=== PATIENT | female | born 1955 | race Caucasian/White ===

== ENCOUNTER 2017-04-17 07:30 | Inpatient (IN) | payer MEDICAID ==
[~2017-04-17 07:30] MED LIST: ACETAMINOPHEN 1,000 MG/100 ML BTL IV ONE; CEFAZOLIN 2 Gram 2 GM/50 ML BAG IVPB ONE; FAMOTIDINE 20MG TABLET PO ONE; MECLIZINE 25 MG TABLET PO ONE; METOCLOPRAMIDE 10 MG TABLET PO ONE
[2017-05-08] MEDS ORDERED: HYDROMORPHONE HCL 2 MG/ML VIAL IV PRN (09:19)
[2017-05-08] MEDS ORDERED: OXYCODONE HCL 5 MG TABLET PO PRN ×2 (09:20)
[2017-05-08] MEDS ORDERED: HYDROCODONE/APAP 5/325MG TABLET PO PRN ×2 (09:20)
[2017-05-08] MEDS ORDERED: OXYCODONE HCL/APAP 5MG/325MG TABLET PO PRN ×2 (09:20)
[2017-05-08] MEDS ORDERED: PATIENT OWN MED: PROAIR HFA INH PRN (09:24)
[2017-05-08] MEDS ORDERED: LORATADINE 10 MG TABLET PO PRN (09:24)
[2017-05-08] MEDS ORDERED: IBUPROFEN 600 MG TABLET PO PRN (09:25)
[2017-05-08] MEDS ORDERED: TRAMADOL HCL 50 MG TABLET PO PRN (09:30)
[2017-05-08] MEDS ORDERED: AL HYDROX/MAG HYDROX 30ML UD PO PRN (09:30)
[2017-05-08] MEDS ORDERED: MAGNESIUM HYDROXIDE 30 ML UDC PO PRN (09:30)
[2017-05-08] MEDS ORDERED: SENNOSIDES/DOCUSATE SODIUM UD CAPSULE PO PRN (09:30)
[2017-05-08] MEDS ORDERED: DIPHENHYDRAMINE HCL 25 MG CAPSULE PO PRN (09:30)
[2017-05-08] MEDS ORDERED: ONDANSETRON HCL IV 4 MG/2 ML VIAL IVP PRN (09:30)
[2017-05-08] MEDS ORDERED: METOCLOPRAMIDE HCL 10 MG/2 ML VIAL IVP PRN (09:30)
[2017-05-08] MEDS ORDERED: RINGERS SOLUTION,LACTATED 1,000 ML IV PRN (10:31)
[2017-05-08] MEDS ORDERED: TRANEXAMIC ACID 1,000 MG in 0.9 % SODIUM CHLORIDE 100ML 100 ML IVPB ONE (11:00)
[2017-05-08] MEDS ORDERED: BUPIVACAINE 0.25% W/EPI MPF 30ML VIAL IVP ONE (12:28)
[2017-05-08] MEDS ORDERED: BUPIVACAINE LIPOSOME 266MG/20ML VIAL IV ONE (12:28)
[2017-05-08] MEDS ORDERED: TRANEXAMIC ACID 1,000 MG/10 ML ML IV ONE (12:28)
--- NOTE | 2017-05-08 13:20 | Operative Note ---
DATE OF SURGERY: 05/08/2017 Surgeon: González Julian DO Referring physician: Nery De Leon NP PREOPERATIVE DIAGNOSIS: Primary osteoarthritis of the right knee. POSTOPERATIVE DIAGNOSIS: Primary osteoarthritis of the right knee. OPERATION: Right total knee arthroplasty. Anesthesia: Spinal. PROCEDURE: This 61-year-old female was taken to the operating room and placed in the supine position on the operating room table. Spinal anesthesia was administered and the right lower extremity was elevated and prepped with Hibiclens and draped in the usual sterile fashion. It was exsanguinated and the tourniquet inflated to 300 mmHg. All scrubbed personnel wore personal isolation suits. An anterior longitudinal midline incision was made, followed by a medial parapatellar arthrotomy incision. An intracondylar drill hole was made for the intramedullary alignment cody and the distal femoral cutting block was affixed to make a 5 degree valgus 9 mm cut on the distal femur. The sizing jig was affixed and size 60 was seen to be the appropriate size in the medial lateral direction, but too small in the anterior posterior dimension, therefore we removed the pin sites 2 mm anteriorly and then pinned the size 60 4-in-1 cutting block in 3 degrees of external rotation. The appropriate cuts were made and the wafer of bone was removed. We then directed our attention to the proximal tibia. An extramedullary alignment guide was used to cut the proximal tibia, referencing a 10 mm cut off the lateral tibial plateau. After the cutting block had been placed in the appropriate position, a 3 degree posterior slope cut was made on the proximal tibia and the wafer of bone was removed. The remnants of the menisci and osteophytes were removed from the posterior aspect of the joint. The tibia was sized to a size 67, the stem punch was used. The wound copiously irrigated to remove debris from the joint. The patella was measured, cut, and restored to anatomic height with a 31 x 6.2 mm trial. The remainder of the trial components were inserted and an 11 mm bearing was seen to be the appropriate size, which gave us excellent stability in varus valgus and throughout full range of motion. All trial components were removed and the wound copiously irrigated with pulse lavage lactated Ringer's solution. Exparel was injected into the posterior medial and lateral corners of the joint and all bony surfaces were dried, all components were cemented and excess cement removed after the insertion of each component. Initially, the tibial base plate was cemented, followed by the tibial bearing, femoral component, and finally the patella. Once the cement had hardened, the remainder of the Exparel was injected into the proximal tibia and distal femur into the joint capsule and the periosteum of each. The drain was placed through a separate stab incision and the arthrotomy incision was closed with a 2 Vicryl. Additional sutures of 0 Ethibond were used for additional support. The wound again irrigated and the subcutaneous tissue closed with 0 Vicryl and the skin was stapled. A Polar Care was applied and the patient taken to the recovery room in satisfactory condition. GROSS PATHOLOGY: This patient had severe osteoarthritis, worst at the patellofemoral joint, but being full-thickness articular cartilage loss there. We also saw a full-thickness articular cartilage loss in the center of the weightbearing surface of the medial femoral condyle, in an area of about 2.5 cm. There was also full-thickness articular cartilage defect on the lateral tibial plateau with the lateral femoral condyle demonstrating grade 3 changes. The final components inserted were: A [employer] Vanguard size 60 cruciate retaining femoral component, a size 67 tibial base plate, an 11mm anterior stabilized E1 bearing, and a 31 x 6.2 mm patella was used. DARIUS
[2017-05-08] MEDS ORDERED: PROPOFOL 10 MG/ML VIAL IV ONE (14:00)
[2017-05-08] MEDS ORDERED: DIPHENHYDRAMINE HCL IV 50 MG/ML VIAL IVP ONE (14:00)
[2017-05-08] MEDS ORDERED: ONDANSETRON HCL IV 4 MG/2 ML VIAL IVP ONE ×2 (14:00→14:30)
[2017-05-08] MEDS ORDERED: EPHEDRINE SULFATE 50 MG/ML ML IV ONE (14:00)
[2017-05-08] MEDS ORDERED: HYDROMORPHONE HCL 2 MG/ML VIAL IV ONE (14:00)
[2017-05-08] MEDS ORDERED: MIDAZOLAM HCL 2MG/2ML VIAL IV ONE (14:00)
[2017-05-08] MEDS ORDERED: FENTANYL PF 100MCG/2ML VIAL IV ONE (14:00)
[2017-05-08] MEDS ORDERED: LIDOCAINE 2% MDV (20MG/ML) 20ML VIAL IV ONE (14:00)
[2017-05-08] MEDS: RINGERS SOLUTION,LACTATED 1,000 ML IV SCH (14:47)
[2017-05-08] MEDS: CEFAZOLIN 2 Gram 2 GM/50 ML BAG IVPB SCH ×2 (14:49→22:38)
--- NOTE | 2017-05-08 15:01 | Rehab Evaluation ---
Patient Information - Patient Information Diagnosis: L Knee OA Ordered Treatment: PT Evaluate and Treat Status: Initial Evaluation Surgery: Yes (L TKA) Date of Surgery: 05/08/17 History: Detail (Pt. reports degenerative changes at the right knee with history of fracture at the contralateral knee.) Past Med/David Hx Detail: Detail (Please see additional medication forms.) Past Medical/Surgical Hx: PAST MEDICAL/SURGICAL HISTORY Past Surgical History kidney sx PMH - Respiratory Hx Respiratory Disorders Yes Hx Asthma Yes: allergy induced Hx of SOB Yes: occass PMH - Cardiovascular Hx Cardiovascular Disorders Yes Hx Hypertension Yes Exercise Tolerance Good Comment: hyponatremia PMH - Neuro Hx Neurological Disorders Yes Hx Headaches Yes: occass Comment: sometimes off balance with low sodium PMH - GI Hx Gastrointestinal Disorders Yes Hx Gastroesophageal Reflux Yes PMH - Hx Genitourinary Disorders Yes Hx Age of Menopause 54 Comment: pt had right nephrectomy congenital abnormality PMH - Endocrine Hx Endocrine Disorders Yes Hx Diabetes Yes Hx of NIDDM Yes Comment: blood sugars 100 - 120 A1C 6.6 PMH - Musculoskeletal Hx Musculoskeletal Disorders Yes Hx Arthritis Yes PMH - Psych Hx Psychiatric Problems No PMH - Hematology/Oncology Hx Hematology/Oncology Yes Disorders Hx Bruising Yes Premorbid Status: Detail (Slowly progressive degenerative changes.) Social History: Detail (Pt. lives in a single story home with two steps leading in and no hand rail. Pt. has a single point cane, quad cane, front wheeled walker, and no modifications made to the bathroom. Pt. lives with her sister who can provide support. Pt. is to have outpatient PT services at [facility] in [place].) Precautions: [place], Fall - Time With Patient Total Time Spent With Patient (Min): 50 Treatment Procedures: Detail (Physical Therapy Evaluation Completed. Pt. was left supine with call light available, B IPC, CPM attached, Cryo RLE, and nursing was notified of pt.'s status.) Subjective Information - Subjective Information Per Patient (Pt. denied SOB, nausea, and reported 2/10 pain at start of tx. Pt. had feeling in her toes.) Objective Data - Pain Pain Present: Yes Pain Intensity: 2 - Mental Status Patient Orientation: Oriented x3 - Visual Perception Appears within normal limits for therapeutic activities - ROM Other (CPM set at 0-60. LLE WFL all planes, as well as BUE.) - Strength/Tone Not within normal limits (Break testing was not tolerated at the right knee. Pt. independently performed SLR with operative LE. Pt. performed single leg bridge with contralateral LE and trapeeze support in bed while maintaining the operative knee in an extended position for positioning of the CPM. Pt. transferred herself to head of bed while supine with the contralateral LE and BUE against the bed.) - Coordination Appears within normal limits for therapeutic activities - Bed Mobility Independent - Transfers Needs Assist (Pt. required VC for correct positioning of hands with sit to stand transfer, and she required tacticle cues to extend the right knee and avoid excessive flexion.) - Balance Balance Sitting: Fair Balance Standing: Poor - Sensation Intact - Gait Detail (Pt. initially advanced the walker with wheels off of floor, she was corrected to roll the walker and take small steps to avoid excessive trunk extension.) - ADL's/IADL's Detail (Pt. was I with bathroom tasks during void attempt.) - Special Tests No Therapy Assessment - Therapy Assessment Detail (Pt. exhibits LE ROM and strength deficits secondary to TKA, and had poor safety awareness with ambulation and positioning of her UE with walker during transfers. Pt. is an excellent candidate to be D/C from PT once goals completed for safe return to home environment.) Patient Education - Patient Education Teaching Topic: Disease Process, Equipment Use, Precautions Response: Return Demonstration, Verbalize Understanding Teaching Method: Discussion, Demonstration Teaching Recipient: Patient Barriers To Learning: None Problem List - Problem List Physical Therapy Problem List: Detail (1) LE Weakness 2) LE ROM Restriction 3) Poor Safety Awareness 4) Standing Balance Impairment) Goals - Goals Physical Therapy Goals: 1) Pt. will independently ambulate household distances with AD appropriately. 2) Pt. will independently ascend and descend two steps appropriately with AD. 3) Pt. will be independent with HEP and precautions. 4 ) Pt. will exhibit good understanding of walker and/or cane placement with transfer and ambulation. Prognosis - Prognosis Good (Pt. is expected to meet all goals set at inpatient evaluation.) Plan - Plan Physical Therapy Plan: Pt. is to be seen 1-2x per day for inpatient PT until goals met for safe D/C to home environment.
[2017-05-08] MEDS: FONDAPARINUX 2.5 MG/0.5 ML SYR SQ SCH (15:06)
[2017-05-08] MEDS: TRAMADOL HCL 50 MG TABLET PO PRN (21:34)
[2017-05-08] MEDS ORDERED: CLONIDINE HCL 0.1 MG TABLET PO SCH (22:00)
[2017-05-09] MEDS: TRAMADOL HCL 50 MG TABLET PO PRN ×2 (03:30→07:41)
[2017-05-09] MEDS: CEFAZOLIN 2 Gram 2 GM/50 ML BAG IVPB SCH (06:02)
[2017-05-09] MEDS: RINGERS SOLUTION,LACTATED 1,000 ML IV SCH (06:07)
[2017-05-09 06:54] LABS: HEMATOCRIT 36.3 % (35.0-47.0); HEMOGLOBIN 11.8 gm/dl (11.6-16.0); MEAN CELL VOLUME 83.3 fl (81-97); MEAN CORPUSCULAR HEMOGLOBIN 27.1 pg (27-33); MEAN CORPUSCULAR HGB CONC 32.5 g/dl (32-36); MEAN PLATELET VOLUME 11.2 fl (7.4-10.4); PLATELET COUNT 265 K/uL (130-400); RED BLOOD COUNT 4.36 M/uL (3.80-5.40); RED CELL DISTRIBUTION WIDTH 13.8 % (11.5-14.5); WHITE BLOOD COUNT W/O DIFF 11.3 K/uL (4.2-12.2)
[2017-05-09] MEDS ORDERED: METFORMIN 500 MG TABLET PO SCH (08:00)
[2017-05-09] MEDS ORDERED: ACETAMINOPHEN 325 MG TAB PO PRN (09:30)
[2017-05-09] MEDS ORDERED: AMLODIPINE 10 MG PO SCH (10:00)
[2017-05-09] MEDS ORDERED: SPIRONOLACTONE 50 MG PO SCH (10:00)
[2017-05-09] MEDS ORDERED: CHLORTHALIDONE 50 MG PO SCH (10:00)
--- NOTE | 2017-05-09 10:47 | Rehab Evaluation ---
Patient Information - Patient Information Diagnosis: L Knee OA Ordered Treatment: OT Evaluate and Treat Status: Initial Evaluation Surgery: Yes (L TKA) Date of Surgery: 05/08/17 History: Detail (Pt. reports degenerative changes at the right knee with history of fracture at the contralateral knee.) Past Med/David Hx Detail: Detail (Please see additional medication forms.) Past Medical/Surgical Hx: PAST MEDICAL/SURGICAL HISTORY Past Surgical History kidney sx PMH - Respiratory Hx Respiratory Disorders Yes Hx Asthma Yes: allergy induced Hx of SOB Yes: occass PMH - Cardiovascular Hx Cardiovascular Disorders Yes Hx Hypertension Yes Exercise Tolerance Good Comment: hyponatremia PMH - Neuro Hx Neurological Disorders Yes Hx Headaches Yes: occass Comment: sometimes off balance with low sodium PMH - GI Hx Gastrointestinal Disorders Yes Hx Gastroesophageal Reflux Yes PMH - Hx Genitourinary Disorders Yes Hx Age of Menopause 54 Comment: pt had right nephrectomy congenital abnormality PMH - Endocrine Hx Endocrine Disorders Yes Hx Diabetes Yes Hx of NIDDM Yes Comment: blood sugars 100 - 120 A1C 6.6 PMH - Musculoskeletal Hx Musculoskeletal Disorders Yes Hx Arthritis Yes PMH - Psych Hx Psychiatric Problems No PMH - Hematology/Oncology Hx Hematology/Oncology Yes Disorders Hx Bruising Yes Premorbid Status: Detail (Slowly progressive degenerative changes.) Social History: Detail (Pt. lives in a single story home with two steps leading in and no hand rail. Pt. has a single point cane, quad cane, front wheeled walker, and no modifications made to the bathroom. Pt. lives with her sister who can provide support. Pt. is to have outpatient PT services at [facility]. Pt also has a manager it training available.) Precautions: [place], Fall - Time With Patient Total Time Spent With Patient (Min): 20 Treatment Procedures: Detail (OT eval LOW) Subjective Information - Subjective Information Per Patient Objective Data - Pain Pain Present: Yes Pain Intensity: 4 (L knee) Pain Scale Used: Numeric (1 - 10) - Mental Status Patient Orientation: Oriented x3 - Visual Perception Appears within normal limits for therapeutic activities - ROM Within normal limits (BUE's) - Strength/Tone Within normal limits (BUE's) - Coordination Appears within normal limits for therapeutic activities - Bed Mobility Needs Assist (Pt required min A to help move LLE off bed.) - Transfers Independent (Sit <>stand t/f w/ 2WW. Independent toilet t/f) - Balance Balance Sitting: Good - Gait Detail (Pt ambulated from bed <> BR indpendently w/ 2WW) - ADL's/IADL's Detail (Pt ind w/ toileting and pant management as well as ambulating within the BR to complete hand washing independently. Pt was instructed on and demo'd understanding of LB drsg techniques. Pt independent with pants don. She states her sister will be helping with sock/shoe don. Pt plans to sponge bath for first several days but discussed wrapping techniques to prevent water from getting on incision site should she plan to shower.) Therapy Assessment - Therapy Assessment Detail (Pt safe and independent with toilet t/f, toilet hygiene and LB dressing. She is independent with ambulation of short distances using 2WW. No further OT needed at this time.) Patient Education - Patient Education Teaching Topic: Other (modified drsg techniques) Response: Return Demonstration Teaching Method: Discussion Teaching Recipient: Patient Problem List - Problem List Physical Therapy Problem List: Detail (1) LE Weakness 2) LE ROM Restriction 3) Poor Safety Awareness 4) Standing Balance Impairment) Goals - Goals Physical Therapy Goals: 1) Pt. will independently ambulate household distances with AD appropriately. 2) Pt. will independently ascend and descend two steps appropriately with AD. 3) Pt. will be independent with HEP and precautions. 4 ) Pt. will exhibit good understanding of walker and/or cane placement with transfer and ambulation. Prognosis - Prognosis Good Plan - Plan Physical Therapy Plan: Pt. is to be seen 1-2x per day for inpatient PT until goals met for safe D/C to home environment. Occupational Therapy Plan: No further inpatient OT needed at this time. Pt d/c' d from OT.
--- NOTE | 2017-05-09 12:17 | Physical Therapy Tx Note ---
Physical Therapy Tx Note - Treatment Note Tolerated: Good (Pt. reported 3/10 pain from start to finish of the treatment session with no complaints of SOB or dizziness.) Total Time Spent With Patient: 30 Physical Therapy Tx Note: Detail (Pt. was instructed on gait training to exhibit definitive heel strike and transition to toe off. Pt. independently ambulated 80 feet with front wheeled walker and after instruction the pt. exhibited proper gait mechanics. Pt. independently ascended and descended three steps with quad can appropriately. Pt. was independent with bed mobility and transfer. Pt. demonstrated good understanding of the following exercises for the home program: heel slides, quad sets, glut sets, ankle pumps, and SLR. Pt. verbalized good understanding of her precautions and signs of infection. Pt. was left seated with call light available.) Physical Therapy Problem List: Detail (Pt. appropriate for D/C from inpatient PT.) Physical Therapy Goals: Pt. has met all inpatient goals set at initial evaluation. Prognosis: Good (Pt. has met all inpatient goals and is appropriate for safe transition to home environment. Pt. is appropriate for D/C from inpatient PT.) Physical Therapy Plan: D/C pt. from inpatient PT.
[2017-05-09] MEDS: FONDAPARINUX 2.5 MG/0.5 ML SYR SQ SCH (14:14)
--- NOTE | 2017-05-12 12:31 | Discharge Summary ---
DATE OF ADMISSION: 05/08/2017 DATE OF DISCHARGE: 05/09/2017 ADMITTING DIAGNOSIS: Osteoarthritis of the right knee. DISCHARGE DIAGNOSIS: Osteoarthritis of the right knee. OPERATIVE PROCEDURE: Elective right total knee arthroplasty. DESCRIPTION: This 61-year-old female was admitted to the hospital for evaluation and treatment of her osteoarthritis and she had total knee arthroplasty and tolerated the operative procedure well. She cleared physical therapy the day after surgery and was ready to be discharged. She was discharged with instructions to have outpatient physical therapy. She was instructed to wear her GREGORIO hose during the day and remove them at night. She will take 1 aspirin daily for 2 weeks. She was given a prescription for [place] 5 mg 1-2 every 6 hours as necessary for pain, and she was given 60. Routine wound care instructions were given. She will follow up in the clinic in 2 weeks. She will contact me should she have any problems prior to being seen. DARIUS
== END 2017-05-09 13:35 | disposition home or self-care (01) | DRG 470 ==
LOC: MEDSURG 05-08 05:49
PROVIDERS: ADMIT Orthopaedic Surgery; ATTEND Orthopaedic Surgery
PROC: 0SRC069 Replacement of Right Knee Joint with Oxidized Zirconium on Polyethylene Synthetic Substitute, Cemented, Open Approach (ICD-10-PCS; principal; 2017-05-08 07:30)
DX: M17.11 Unilateral primary osteoarthritis, right knee (principal); I10 Essential (primary) hypertension; E11.9 Type 2 diabetes mellitus without complications; Z79.84 Long term (current) use of oral hypoglycemic drugs
CPT/HCPCS: 85025; 97116; 97165; 97530; J1200; J2405; J7120